=== PATIENT | female | born 1980 | race Caucasian/White ===

== ENCOUNTER 2021-10-19 14:57 | Inpatient (IN) | payer SELFPAY ==
[~2021-10-19] VITALS: Ht 165.1 cm; Wt 99.8 kg
[2021-10-19] MEDS ORDERED: SODIUM CHLORIDE 0.9% 1000ML 1,000 ML IV STA (16:18)
[2021-10-19] MEDS ORDERED: ONDANSETRON HCL INJ 2MG/ML 2ML 2 MG/ML VIAL IV PRN ×2 (16:30→18:45)
[2021-10-19 16:31] LABS: BASOPHILS # (AUTO) 0.1 (0.0-0.1); BASOPHILS % 0.2 % (0.0-1.0); EOSINOPHILS # (AUTO) 0.1 (0.0-0.4); EOSINOPHILS % 0.3 % (0.0-6.0); HEMATOCRIT 49.6 % (34.2-44.1); HEMOGLOBIN 16.5 g/dL (12.0-16.0); LYMPHOCYTES # (AUTO) 0.6 (1.0-3.2); LYMPHOCYTES % 2.7 % (18.0-39.1); MEAN CORPUSCULAR HEMOGLOBIN 27.5 pg (28-32); MEAN CORPUSCULAR HGB CONC 33.3 g/dL (31-35); MEAN CORPUSCULAR VOLUME 82.7 fL (81-99); MONOCYTES # (AUTO) 0.6 (0.2-0.8); MONOCYTES % 2.6 % (4.4-11.3); NEUTROPHILS # (AUTO) 21.9 (2.1-6.9); NEUTROPHILS % 93.8 % (38.7-80.0); PLATELET COUNT 449 x10e3/uL (140-360); RED CELL DISTRIBUTION WIDTH 14.2 % (11.7-14.4)
[2021-10-19 16:50] LABS: ALBUMIN 4.1 g/dL (3.5-5.0); ALBUMIN/GLOBULIN RATIO 0.9 (0.8-2.0); ANION GAP 18.4 mmol/L (8-16); CALCIUM 9.4 mg/dL (8.4-10.2); CREATININE, SERUM 0.86 mg/dL (0.57-1.11); POTASSIUM 3.4 mmol/L (3.5-5.1)
[2021-10-19] MEDS ORDERED: LACTATED RINGER'S 1,000 ML INJ ONE ×2 (17:00)
[2021-10-19] MEDS ORDERED: IOPAMIDOL 370 MG/ML 100 ML INFUS..BTL INJ ONE (17:34)
[2021-10-19 17:38] LABS: CLARITY,URINE CLOUDY (CLEAR); COLOR,URINE YELLOW (YELLOW); KETONES,URINE TRACE (NEGATIVE); LEUKOCYTE ESTERASE ,URINE TRACE (NEGATIVE); NITRITE,URINE NEGATIVE (NEGATIVE); PROTEIN,URINE DIPSTICK 2+ (NEGATIVE)
[2021-10-19 17:39] LABS: URINE UROBILINOGEN 0.2 mg/dL (0.2 - 1)
[2021-10-19 17:41] LABS: BACTERIA,URINE MODERATE /HPF; EPITHELIAL CELLS,URINE MANY /LPF; RBC,URINE 0-5 /HPF (0-5); WBC,URINE (MAN) >50 /HPF (0-5)
[2021-10-19 17:48] LABS: LYMPHOCYTES % (MANUAL) 4 % (19-48); MONOCYTES % (MANUAL) 2 % (3.4-9.0); NEUTROPHILS % (MANUAL) 94 % (40-74); PLATELET ESTIMATE ADEQUATE; PLATELET MORPHOLOGY COMMENT NORMAL; RBC MORPHOLOGY COMMENT NORMAL
[2021-10-19] MEDS: SODIUM CHLORIDE 0.9% 1000ML 1,000 ML IV SCH (19:13)
[2021-10-19 21:15] VITALS: BP 118/70
[2021-10-19] MEDS: ACETAMINOPHEN 325 MG TAB PO PRN (21:34)
[2021-10-20] VITALS (8 sets, daily range): BP systolic 113–148; BP diastolic 64–93
[2021-10-20] MEDS: SODIUM CHLORIDE 0.9% 1000ML 1,000 ML IV SCH ×3 (01:41→14:34)
[2021-10-20] MEDS: ACETAMINOPHEN 325 MG TAB PO PRN (01:42)
[2021-10-20] MEDS ORDERED: FENOFIBRATE145 MG PO (02:06)
[2021-10-20] MEDS ORDERED: FLUOXETINE HCL20 M1 PO (02:06)
[2021-10-20] MEDS ORDERED: VERAPAMIL ER120 MG PO (02:06)
[2021-10-20] MEDS ORDERED: ENALAPRIL-HCTZ1 EACH PO (02:06)
[2021-10-20] MEDS ORDERED: MONTELUKAST SOD10 MG PO (02:06)
[2021-10-20] MEDS ORDERED: OLANZAPINE5 MG PO (02:06)
[2021-10-20] MEDS ORDERED: ULTRAM50 MG PO (02:06)
[2021-10-20] MEDS ORDERED: CRESTOR20 MG PO (02:06)
[2021-10-20] MEDS ORDERED: OMEPRAZOLE40 MG PO (02:06)
[2021-10-20] MEDS ORDERED: ATOMOXETINE HCL60 MG PO (02:06)
[2021-10-20] MEDS ORDERED: TRELEGY ELLIPT1 EACH IH (02:10)
[2021-10-20 06:44] LABS: BASOPHILS % 0.2 % (0.0-1.0); EOSINOPHILS # (AUTO) 0.1 (0.0-0.4); EOSINOPHILS % 1.1 % (0.0-6.0); HEMATOCRIT 38.4 % (34.2-44.1); HEMOGLOBIN 12.3 g/dL (12.0-16.0); LYMPHOCYTES # (AUTO) 0.9 (1.0-3.2); MEAN CORPUSCULAR HEMOGLOBIN 27.2 pg (28-32); MONOCYTES # (AUTO) 0.5 (0.2-0.8); MONOCYTES % 5.5 % (4.4-11.3); NEUTROPHILS # (AUTO) 8.1 (2.1-6.9); NEUTROPHILS % 83.6 % (38.7-80.0); PLATELET COUNT 301 x10e3/uL (140-360); RED BLOOD COUNT 4.52 x10e6/uL (3.6-5.1); RED CELL DISTRIBUTION WIDTH 14.3 % (11.7-14.4)
[2021-10-20 07:35] LABS: ALBUMIN 2.9 g/dL (3.5-5.0); ALBUMIN/GLOBULIN RATIO 1.1 (0.8-2.0); ANION GAP 10.9 mmol/L (8-16); CREATININE, SERUM 0.7 mg/dL (0.57-1.11)
[2021-10-20 07:37] LABS: POTASSIUM 2.9 mmol/L (3.5-5.1)
[2021-10-20 08:29] LABS: MAGNESIUM 1.5 MG/DL (1.3-2.1); PHOSPHORUS 2.1 MG/DL (2.3-4.7)
[2021-10-20] MEDS ORDERED: MAGNESIUM SULFATE 2GM/50ML 50 ML IV ONE (08:45)
[2021-10-20] MEDS ORDERED: POTASSIUM PHOSPHATE 15 MM in SODIUM CHLORIDE 0.9% 250ML 250 ML IV ONE (11:00)
[2021-10-20] MEDS ORDERED: DIPHENOXYLATE/ATROPINE TAB PO PRN (14:30)
[2021-10-20] MEDS ORDERED: POTASSIUM CHLORIDE 20 MEQ TAB CR PO ONE (15:00)
[2021-10-20] MEDS ORDERED: METRONIDAZOLE500 MG PO (17:49)
[2021-10-20] MEDS ORDERED: CIPRO500 MG PO (17:49)
[2021-10-20] MEDS ORDERED: CHOLESTYRAMINE 4 GM PACKET PO SCH (18:00)
[2021-10-20] MEDS ORDERED: QUESTRAN PACKET4 GM PO (18:03)
== END 2021-10-20 15:57 | disposition left against medical advice (07) | DRG 872 ==
LOC: ER 15:05 → ERHOLD 18:44 → MED/SURG3 20:55 → OBSVTOIN 10-20 09:02
PROVIDERS: ADMIT Internal Medicine; ATTEND Internal Medicine
DX: A41.9 Sepsis, unspecified organism (principal); N39.0 Urinary tract infection, site not specified; R65.20 Severe sepsis without septic shock; I10 Essential (primary) hypertension; E78.5 Hyperlipidemia, unspecified; F31.9 Bipolar disorder, unspecified; J45.909 Unspecified asthma, uncomplicated; R19.7 Diarrhea, unspecified; A08.4 Viral intestinal infection, unspecified; E87.6 Hypokalemia; E83.39 Other disorders of phosphorus metabolism; E83.42 Hypomagnesemia; Z88.8 Allergy status to other drugs, medicaments and biological substances; Z20.822 Contact with and (suspected) exposure to COVID-19
CPT/HCPCS: 36415; 74177; 80053; 81001; 83036; 83605; 83690; 83735; 84100; 84702; 85025; 87040; 87086; 99284; G0378; J2405; J2543; J3475; J7030; J7050; J7121; Q9967